=== PATIENT | female | born 1955 | race Caucasian/White ===

== ENCOUNTER 2020-02-13 12:18 | Emergency (ER) | payer MEDICARE, OTHER ==
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
[2020-02-13] MEDS ORDERED: Sodium Chloride 0.9% 10 ML Syringe FLUSH PRN (12:55)
[2020-02-13] MEDS ORDERED: Ondansetron 4 MG/2 ML SDV IVPUSH ONE (12:58)
[2020-02-13] MEDS: fentaNYL 100 MCG/2 ML SDV IVPUSH ONE ×2 (13:10→13:21)
[2020-02-13] MEDS ORDERED: fentaNYL 100 MCG/2 ML SDV ONE (13:11)
[2020-02-13] MEDS ORDERED: Ondansetron 4 MG/2 ML SDV ONE (13:12)
[2020-02-13] MEDS ORDERED: Sodium Chloride 0.9% 50 ML SDV FLUSH ONE (13:35)
[2020-02-13] MEDS ORDERED: Iodixanol 652 MG/ML 100 ML Bottle IV SCH (13:45)
[2020-02-13] MEDS ORDERED: Diatrizoate Meglumine/Diatrizoate Sodium 37% 30 ML Bottle PO SCH (13:45)
[2020-02-13] MEDS ORDERED: HYDROmorphone 2 MG/ML SDV IVPUSH ONE ×3 (13:55→16:08)
[2020-02-13] MEDS ORDERED: Metoclopramide 10 MG/2 ML SDV IV ONE (14:01)
[2020-02-13] MEDS ORDERED: HYDROmorphone 2 MG/ML SDV ONE (14:03)
[2020-02-13] MEDS ORDERED: Metoclopramide 10 MG/2 ML SDV ONE (14:10)
--- NOTE | 2020-02-14 05:46 | CT ---
Date of Service: 02/13/20 Clinical Data: abd pain ENHANCED ABDOMEN AND PELVIC CT: Multislice acquisition through the abdomen and pelvis with IV and oral contrast was performed. Comparison is made to a prior exam dated 08/13/11. There are minimal atelectatic changes in the dependent portion of both lower lungs. There are linear densities in both lung bases consistent with linear atelectasis or fibrosis. The heart size is normal. The liver is normal size with homogeneous attenuation. No focal hepatic lesions. The gallbladder appears normal. No biliary duct dilatation. There are numerous calcifications within the spleen consistent with prior granulomatous disease. The spleen otherwise appears normal. The pancreas appears normal. The right and left adrenal appear normal. The right and left kidneys enhance symmetrically. There are subcentimeter lower density lesion sin both kidneys most likely representing renal cysts. They are, however, too small to adequately characterize. No hydronephrosis or hydroureter. The bladder is partially fluid filled. It appears normal. There are numerous calcified lesions within the uterus consistent with small calcified uterine leiomyoma. No evidence of appendicitis. There is diverticulosis of the descending and sigmoid colon. No evidence of diverticulitis. There is a right inguinal hernia containing a small loop of small bowel. There is dilatation of the small bowel proximal to the hernia with air-fluid levels consistent with an obstruction. No free air. No free fluid. No adenopathy. No aortic aneurysm or dissection. IMPRESSION: 1. Right inguinal hernia containing a loop of small bowel. There is dilatation of the small bowel proximally with air fluid levels consistent with small bowel obstruction. 2. Other findings as discussed above. [id number] [facility]
== END 2020-02-13 16:15 ==
LOC: LB.ED 12:18
DX: K56.609 Unspecified intestinal obstruction, unspecified as to partial versus complete obstruction (principal); N28.89 Other specified disorders of kidney and ureter; Z20.828 Contact with and (suspected) exposure to other viral communicable diseases
CPT/HCPCS: 36415; 74177; 80053; 81001; 83690; 85025; 93005; 96374; 96375; 96376; 99284; 99285; A0425; A0429; J1170; J2405; J2765; J3010; U0002